=== PATIENT | male | born 1965 | race Caucasian/White ===

== ENCOUNTER 2024-03-22 11:34 | Emergency (ER) | payer OTHER, SELFPAY ==
[2024-03-22 11:37] VITALS: BP 151/88
[2024-03-22 12:28] LABS: Urine Albumin Negative (Neg - Trace); Urine Bilirubin Negative (Negative); Urine Character Clear (Clear); Urine Color Yellow; Urine Glucose Negative (Negative); Urine Ketone Negative (Negative); Urine Leukocyte Negative (Negative); Urine Nitrite Negative (Negative); Urine Occult Blood 1+ (Negative); Urine Urobilinogen Negative (Neg - 1+)
--- NOTE | 2024-03-22 12:37 | ED.GENMED ---
History of Present Illness
<Wilma Rod PA-C - Last Filed: 03/22/24 18:57>
General
Chief Complaint: Flank Pain
Source: patient
Exam Limitations: none
Time Seen by Provider: 03/22/24 12:03
Nursing documentation reviewed up to this point in time: agreed with
History of Present Illness
History of Present Illness:
58-year-old male with history of kidney stones presenting to the emergency department for evaluation of left flank pain. Patient reports intermittent left flank pain over the past month although with significant worsening yesterday. Patient states
pain is located in his left flank and radiates around to his left groin. Pain comes in waves. Patient does have mild dysuria. Patient denies any associated fever, chills, hematuria, nausea/vomiting, or abdominal pain. Patient denies any chest
pain or shortness of breath.
Patient does have a history of a kidney stone on the right side about 5 years ago. He was able to pass the stone at home.
Review of Systems
<Wilma Rod PA-C - Last Filed: 03/22/24 18:57>
Review of Systems
Allergies reviewed?: Yes
All Other Systems: ROS reviewed and negative except as documented in HPI and ROS
Phy Exam
<Wilma Rod PA-C - Last Filed: 03/22/24 18:57>
Physical Exam
Physical Exam:
Vitals: Patient's vital signs are stable. Afebrile
General: Patient is well appearing, no acute distress. Nontoxic-appearing
Skin: Warm and dry, no rashes or lesions
Head: Normocephalic, atraumatic
Eyes: Sclera nonicteric. EOMs intact. No nystagmus.
Throat: Protecting airway
Neck: Normal ROM, no cervical spine tenderness, no meningismus
Cardiac: Regular rate and rhythm, no murmurs.
Pulm: Normal respiratory effort, no wheezes, rales, rhonchi heard on exam.
Abdomen: Abdomen soft. No abdominal tenderness. No CVA tenderness
Extremities: No evidence of cyanosis or edema
Neuro: Grossly intact.
Psychiatric: Normal affect.
Course
<Wilma Rod PA-C - Last Filed: 03/22/24 18:57>
Orders/Labs/Results
Orders:
Orders
03/22/24 12:12
Urinalysis Reflex To Culture Urgent
Date Specimen was Collected: 03/22/24
Time Specimen was Collected: 12:07
Urine Microscopic Reflex Cult Urgent
03/22/24 12:36
0.9% Sodium Chloride 1000 ml [Nss] 1,000 ml IV BOLUS
Ketorolac [Toradol] 15 mg IV NOW STA
03/22/24 12:37
CT Abd/pel Without Iv Or Oral Urgent
Comment:
Reason For Exam: Left flank pain, hx kidney stones
03/22/24 12:44
Complete Blood Count/With Diff Urgent
Comprehensive Metabolic Panel Urgent
03/22/24 14:10
Tamsulosin [Flomax] 0.4 mg PO NOW STA
Abnormal Lab Results
03/22/24 03/22/24
12:12 12:44
RBC 4.57 L 10^6/uL
(4.70-6.10)
Glucose 110 H mg/dl
(70-99)
Alkaline Phosphatase 36 L U/L
(38-126)
Ur Occult Blood Reflex 1+ A
(Negative)
Urine RBC 3-6 A /HPF
(0-2)
03/22/24 12:44
03/22/24 12:44
Vital Signs
Initial and Last Documented VS:
Initial Vital Signs
Temp Pulse Resp BP Pulse Ox
98.5 F 82 18 151/88 94
03/22/24 11:37 03/22/24 11:37 03/22/24 11:37 03/22/24 11:37 03/22/24 11:37
Last Documented Vital Signs
Temp Pulse Resp BP Pulse Ox
98.5 F 82 18 151/88 94
03/22/24 11:37 03/22/24 11:37 03/22/24 11:37 03/22/24 11:37 03/22/24 11:37
<Hari Valencia, DO - Last Filed: 03/22/24 21:10>
Orders/Labs/Results
Orders:
Orders
03/22/24 12:12
Urinalysis Reflex To Culture Urgent
Date Specimen was Collected: 03/22/24
Time Specimen was Collected: 12:07
Urine Microscopic Reflex Cult Urgent
03/22/24 12:36
0.9% Sodium Chloride 1000 ml [Nss] 1,000 ml IV BOLUS
Ketorolac [Toradol] 15 mg IV NOW STA
03/22/24 12:37
CT Abd/pel Without Iv Or Oral Urgent
Comment:
Reason For Exam: Left flank pain, hx kidney stones
03/22/24 12:44
Complete Blood Count/With Diff Urgent
Comprehensive Metabolic Panel Urgent
03/22/24 14:10
Tamsulosin [Flomax] 0.4 mg PO NOW STA
Abnormal Lab Results
03/22/24 03/22/24
12:12 12:44
RBC 4.57 L 10^6/uL
(4.70-6.10)
Glucose 110 H mg/dl
(70-99)
Alkaline Phosphatase 36 L U/L
(38-126)
Ur Occult Blood Reflex 1+ A
(Negative)
Urine RBC 3-6 A /HPF
(0-2)
03/22/24 12:44
03/22/24 12:44
Vital Signs
Initial and Last Documented VS:
Initial Vital Signs
Temp Pulse Resp BP Pulse Ox
98.5 F 82 18 151/88 94
03/22/24 11:37 03/22/24 11:37 03/22/24 11:37 03/22/24 11:37 03/22/24 11:37
Last Documented Vital Signs
Temp Pulse Resp BP Pulse Ox
98.5 F 82 18 151/88 94
03/22/24 11:37 03/22/24 11:37 03/22/24 11:37 03/22/24 11:37 03/22/24 11:37
<Wilma Rod PA-C - Last Filed: 03/22/24 18:57>
MDM/Problems Addressed
Differential Diagnosis Includes:
Not limited to: Kidney stone, UTI, pyelonephritis, zoster, muscle strain, diverticulitis, etc.
MDM/Problems Addressed:
58-year-old male presenting with intermittent left flank pain. Mild dysuria. No fever or chills. History of kidney stones. Mildly hypertensive, otherwise vital signs stable. Afebrile. Patient very well-appearing on my exam. He is
conversational and nontoxic. Abdomen is soft and nontender. No reproducible tenderness of left flank. No evidence of rash to suggest zoster. No ecchymoses of bilateral flank. Patient perfusing with great distal pulses. Cardio/pulmonary
assessment unremarkable. Labs were drawn without significant abnormalities. No evidence of renal insufficiency. Creatinine is normal at 0.8. Urine shows some RBCs. No evidence of infection. Patient was treated with fluids, Toradol. CT pending.
CT report reviewed. Approximately 3 mm left UVJ stone with mild left hydronephrosis and hydroureter noted. 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 He will have this
followed up with primary care. Patient's pain has been very well-controlled with 1 dose of Toradol. I feel patient is good candidate for trial of outpatient passage. Discussed importance of monitoring for any signs of infection, return
precautions. Will start patient on Flomax, recommend ibuprofen, p.o. fluid intake at home. Offered patient few oxycodone for severe pain which she declined. Patient will follow up with urology for further management. Patient stable for
discharge. Seen with attending physician.
Chronic conditions affecting care:
History of kidney stones
Acute Exacerbation and/or Progression of Chronic Illness:
Left UVJ stone
<Wilma Rod PA-C - Last Filed: 03/22/24 18:57>
*Radiology
Radiology exam reviewed: preliminary read by ED provider and radiology read reviewed
*Pulse Oximetry
Patient hypoxic: no
*EKG
Interpreted by ED Provider?: NA
*Train Electronic Technician Interpretation
Rate: Train Electronic Technician- N/A
*Critical Care Note
Total Time (30-74mins, 75-104mins- exclusive of procedures): Not Applicable
ED Attending Note
<Wilma Rod PA-C - Last Filed: 03/22/24 18:57>
-
Portions of this chart may have been created with voice recognition software.� Occasional wrong word or��sound alike� substitutions may have occurred due to the inherent limitations of voice recognition software.
<Hari Valencia, - Last Filed: 03/22/24 21:10>
ED Attending Note
Patient seen and examined by attending physician: Yes
I performed a history and physical exam of patient and discussed management with resident, I reviewed resident's note and agree with documented findings and plan of care.: Yes
ED Attending Note:
I reviewed and agree with history and treatment plan by Wilma Ervin. My exam revealed 58-year-old male in no acute distress. I reviewed CT scan, showing kidney stone left UVJ. Patient stable for discharge. No UTI
Discharge Plan
Departure
Patient Disposition: Home (Routine Discharge)
Date of Disposition: 03/22/24
Time of Disposition: 14:10
Patient with high blood pressure during this ER visit?: Yes
Condition: Good
Covid-19: Not Applicable
Discharge Problem:
Calculus of ureterovesical junction (UVJ)
Instructions: Kidney Stones (DC), BLOOD PRESSURE
Prescriptions:
New
tamsulosin [Flomax] 0.4 mg capsule
0.4 mg PO DAILY Qty: 14 0RF
Referrals:
Thaddeus Fernandez MD [Family Provider] -
Artemio Talbert MD [Active] - Next open appointment
Activity Restrictions/Additional Instructions:
RETURN TO THE EMERGENCY DEPARTMENT WITH ANY FEVERS, CHILLS, SEVERE ABDOMINAL/BACK PAIN, NAUSEA/VOMITING, INABILITY TO URINATE, WORSENING IN CURRENT SYMPTOMS, OR ANY OTHER CONCERNS
-You should take 600 mg of ibuprofen every 6-8 hours as needed for pain. In addition�you can take Tylenol as needed. You should take Flomax daily until the stone is passed. Stay well-hydrated. Strain your urine.
-Call urology tomorrow to schedule follow-up appointment. The information has been provided for you above.
-As discussed�there was an incidental finding of a hepatic mass seen on your CT scan. You should ensure that this is followed up appropriately with your primary care doctor with a CT or MRI outpatient.
Monitor your symptoms closely return to the emergency department with any acute worsening/new symptoms or any signs of infection
Interventions
Interventions:
*Risk Screen - Suicide Last Done: 03/22/24 14:21
*General Assessment Last Done: 03/22/24 14:21
*Neglect/Abuse Screening Last Done: 03/22/24 14:21
ED- Fall Risk Assessment Last Done: 03/22/24 14:21
*ED COVID-19 Vaccine History Last Done: 03/22/24 14:22
*Nursing Disposition Last Done: 03/22/24 14:21
KT-Zcbisr-Nrxiyodpja Assessment Last Done: 03/22/24 12:51
ED-Male Genitourinary Assessment Last Done: 03/22/24 12:51
Discharge Date and Time
Discharge Date/Time: 03/22/24 14:23
Print Language: TRINIDADIAN
[2024-03-22 12:43] LABS: Urine White Cell 0-2 /HPF (0-5)
[2024-03-22 12:44] LABS: Urine Amorphous Seen; Urine Urothelial Cell 0-2 /LPF (FEW)
[2024-03-22] MEDS: NSS 1000 IV (12:47)
[2024-03-22] MEDS: TORADOL 15 MG IV (12:47)
[2024-03-22 12:53] LABS: % Basophils 0.4 % (0-2); % Eosinophils 1.1 % (0-6); % Immature Granulocytes 0.5 % (0-0.5); % Lymphocytes 25.9 % (20.5-51.1); % Monocytes 6.4 % (1.7-9.3); % Neutrophils 65.7 % (42.2-75.2); Absolute Eosinophils 0.1 10^3/uL (0-0.7); Absolute Lymphocytes 1.9 10^3/uL (1.2-3.4); Absolute Monocytes 0.5 10^3/uL (0.1-0.6); Absolute Neutrophils 4.9 10^3/uL (1.4-6.5); Hemoglobin 14.1 g/dL (13.0-18.0); Mean Corp Hgb Conc. 35.3 g/dL (33.0-37.0); Mean Corpuscular Hgb 30.9 pg (27.0-31.0); Mean Corpuscular Volume 87.5 fL (80.0-94.0); Mean Platelet Volume 9.8 fL (7.4-10.4); Nucleated Red Blood Cells % 0 % (-); Platelet Count 227 10^3/uL (130-400); Red Blood Cell Count 4.57 10^6/uL (4.70-6.10); Red Cell Dist. Width 12.4 % (11.5-14.5); White Blood Cell Count 7.5 10^3/uL (4.8-10.8)
[2024-03-22 13:12] LABS: ALT (SGPT) 28 U/L (0-50); AST (SGOT) 25 U/L (17-59); Albumin 4.7 g/dl (3.5-5.0); Alkaline Phosphatase 36 U/L (38-126); Blood Urea Nitrogen 14 mg/dl (9-20); Calcium 9.7 mg/dl (8.4-10.2); Carbon Dioxide 26 mmol/L (22-30); Chloride 103 mmol/L (98-107); Glucose 110 mg/dl (70-99); Potassium 4.2 mmol/L (3.5-5.1); Sodium 142 mmol/L (135-145); Total Bilirubin 0.5 mg/dl (0.2-1.3); Total Protein 7.3 g/dl (6.3-8.2); eGFR > 60.00
[2024-03-22] MEDS: FLOMAX 0.4 MG PO (14:18)
== END 2024-03-22 14:23 | disposition home or self-care (01) ==
LOC: EMR 11:34
PROVIDERS: Physician Assistant; EMERGENCY PHYSICIAN Emergency Medicine; FAMILY PHYSICIAN Family Medicine
DX: N13.2 Hydronephrosis with renal and ureteral calculous obstruction (principal); Z87.442 Personal history of urinary calculi
CPT/HCPCS: 99284; 96374; 96361; 74176; 80053; 81003; 81015; 85025